=== PATIENT | female | born 1990 | race Caucasian/White ===

== ENCOUNTER → 2017-01-20 | Outpatient (CLI) | payer BC ==
--- NOTE | 2017-01-20 15:19 | DIAGNOSTIC IMAGING REPORT ---
L-SPINE MIN 4 VIEWS ROUTINE CLINICAL HISTORY: Low back pain. COMPARISON: None FINDINGS: Alignment of the lumbar spine is anatomic. Vertebral body heights are maintained. There is no fracture or osseous lesion. The disc spaces are preserved. Facet joints are intact. Sacroiliac joints are intact. IMPRESSION: Unremarkable lumbar spine radiographs. Electronically signed by: Lux Colon M.D. 01/20/2017 3:18 PM Dictated Date/Time: 01/20/2017 3:16 PM
== END | disposition home or self-care (01) ==
LOC: C.RAD 15:00
PROVIDERS: ATTEND Nurse Practitioner Family
DX: M54.5 Low back pain (principal)